=== PATIENT | male | born 1975 | race Caucasian/White ===

== ENCOUNTER 2016-10-24 11:50 | Inpatient (IN) | payer OTHER ==
[2016-10-24 11:58] VITALS: BMI 33.3
[2016-10-24] MEDS ORDERED: NS 1000 ML 1,000 ML IV ONE (13:02)
--- NOTE | 2016-10-24 13:05 | DR.GENAD ---
HPI - PCP Primary Care Physician: MD - HPI Comment HPI Comment: PATIENT HAVE NAUSEA, VOMITING DIARRHEA. GIVEN MEDS FOR FOR STOMACK VIRUS. TAKEN MEDS WITHOUT IMPROVEMENT. FAIL OUT PATIENT TREATMENT. FEQUENT BOWEL MOVEMENT NOTED IN ED. PATIENT HAVE FEVER THAT HAVE IMPROVE. VOMITING IMPROVING ALSO. - Complaint/Symptoms Chief Complaint Doctors Comments: ABDOMINAL PAIN, NAUSEA, VOMITING DIARRHEA FOR 3 TO 4 DAYS. Chief Complaint:: STOMACH VIRUS,VOMITING,DIVITICULITIS - Nurses notes reviewed Nurses Notes Review: Yes - Source History Provided: Patient - Mode of Arrival Mode of Arrival: Ambulatory - Timing Onset of Chief Complaint: 10/21/16 Came on: Suddenly - Duration Duration: Constant Duration: Days - Severity Severity: Moderate PMH - PMH Past Medical History: Yes Past Medical History: Anxiety, Depression, Diabetes, Hypertension Past Medical History Comment: TBI,PTSD Past Surgical History: Yes Surgical History: Cholecystectomy, Ortho Surgery, Tonsillectomy - Family History History of Family Medical Conditions: Yes Family Medical History: Diabetes Mellitus, Hypertension - Social History Does patient currently use any type of tobacco product: Yes Have you used tobacco products in the last 12 months: Yes Type of Tobacco Use: Cigarettes How many years tobacco product used: 18 Does any household member use tobacco: Yes Alcohol Use: Rarely Do you use any recreational Drugs:: No Lives With: Family Lives Where: Home - infectious screening In the last 2 months have you had wt loss of >10#?: NO Have you had fever, night sweats or hemotysis?: No Have you traveled outside the country in the last 6 months?: No Isolation: Standard ROS - Review of Systems Constitutional: Weakness, Fatigue, Loss of Appetite Eyes: No Symptoms Reported. negative: Eye Pain, Discharge ENTM: No Symptoms Reported. negative: Ear Pain, Nose Discharge, Nose Congestion , Throat Pain Respiratoy: No Symptoms Reported. negative: Productive Cough, Non-Productive Cough, Short of Breath, Wheezing, Hemoptysis Cardiovascular: No Symptoms Reported Gastrointestinal/Abdominal: Abdominal Pain, Diarrhea, Nausea, Vomiting Genitourinary: No Symptoms Reported. negative: Dysuria, Frequency, Hematuria Neurological: Weakness, Dizziness Musculoskeletal: Muscle Pain Integumentary: Dryness Hematologic/Lymphatic: Easy Bruising Endocrine: Increased Thirst. negative: Flushing All Other Systems: Reviewed and Negative PE - Vital Signs Vitals: Temperature 98.1 F Pulse Rate [Right Radial] 78 Pulse Rate 87 Respiratory Rate 16 Blood Pressure [Right Arm] 122/66 Blood Pressure 123/76 O2 Sat by Pulse Oximetry 98 - General Limitations: No Limitations General Appearance: Alert - Head Head Exam: Normal Inspection - Eyes Eye exam: Normal Appearance - ENT ENT Exam: Normal External Ear Exam External Ear Exam: Normal External Inspection TM/Canal Exam: Bilateral Normal Nose Exam: Normal Nose Exam Mouth Exam: Normal Inspection Throat Exam: Normal Inspection - Chest Chest Inspection: Symmetric Chest Wall Rise - Respiratory Respiratory Exam: Normal Lung Sounds Bilat Respiratory Exam: Bilateral Clear to Auscultation - Cardiovascular Cardiovascular Exam: Regular Rate, Normal Rhythm, Normal Heart Sounds - Abdominal Exam Abdominal Exam: Normal Bowel Sounds, Soft, Tenderness Abdominal Tenderness: LUQ, LLQ, Moderate - Extremities Extremities Exam: Normal Inspection - Back Back Exam: Normal Inspection - Neurologic Neurological Exam: Alert, Oriented X3 - Psychiatric Psychiatric Exam: Normal Affect, Normal Mood - Skin Skin Exam: Normal Color MDM - Differential Diagnosis Differential Diagnosis: LEFT SIDED ABDOMINAL PAQIN, GASTROENTERITIS, DIVERTICULITIS, DEHYDRATION Course - Treatment Treatment: SEE ORDERS, NS AND ANTIBIOTICS AND PAIN MED IN ED. - Reevaluation 1st: Improved, Unchanged - Consultation Consultation Comments: DISCUSS PATIENT WITH DR. REAGAN. HE WILL ADMIT PATIENT. - Education/Counseling Education/Counseling: Patient, Education Educated On: Treatment, Diagnosis, Needs for Follow Up ROR - Labs Reviewed Laboratory Results Reviewed?: Yes Result Diagrams: 10/24/16 13:11 10/24/16 13:11 Laboratory: 10/24/16 13:46 Stool - Final WBC 5.7 X10^3/uL (3.6-10.0) 10/24/16 13:11 RBC 5.05 X10^6/uL (4.7-6.0) 10/24/16 13:11 Hgb 14.2 g/dL (13.5-18.0) 10/24/16 13:11 Hct 42.1 % (42.0-54.0) 10/24/16 13:11 MCV 83.5 fL (80.0-100.0) 10/24/16 13:11 MCH 28.2 pg (27.0-34.0) 10/24/16 13:11 MCHC 33.8 g/dL (33.0-35.0) 10/24/16 13:11 RDW 13.7 % (11.6-16.5) 10/24/16 13:11 Plt Count 216 X10^3/uL (150.0-450.0) 10/24/16 13:11 MPV 8.3 fL (7.4-11.0) 10/24/16 13:11 Neut % 71.1 % (42.0-75.0) 10/24/16 13:11 Lymph % 13.6 % (21.0-51.0) L 10/24/16 13:11 [place] % 10.8 % (0.0-13.0) 10/24/16 13:11 Eos % 4.1 % (0.9-2.9) H 10/24/16 13:11 Baso % 0.4 % (0.2-1.0) 10/24/16 13:11 Neut # 4.0 x10^3/uL (2.2-4.8) 10/24/16 13:11 Lymph # 0.8 X10^3/uL (1.3-2.9) L 10/24/16 13:11 [place] # 0.6 x10^3/uL (0.3-0.8) 10/24/16 13:11 Eos # 0.2 x10^3/uL (0.0-0.2) 10/24/16 13:11 Baso # 0.0 X10^3/uL (0.0-0.1) 10/24/16 13:11 Absolute Nucleated RBC 0.0 /100WBC 10/24/16 13:11 Sodium 143 mmol/L (136-145) 10/24/16 13:11 Corrected Sodium 144 mmol/L (136-145) 10/24/16 13:11 Potassium 4.1 mmol/L (3.5-5.1) 10/24/16 13:11 Chloride 107 mmol/L (98-107) 10/24/16 13:11 Carbon Dioxide 26.1 mmol/L (21-32) 10/24/16 13:11 BUN 12 mg/dL (7-18) 10/24/16 13:11 Creatinine 1.25 mg/dL (0.70-1.30) 10/24/16 13:11 Est GFR (MDRD) Af Amer > 60 (>60) 10/24/16 13:11 Est GFR (MDRD) Non-Af > 60 (>60) 10/24/16 13:11 Glucose 147 mg/dL (65-99) H 10/24/16 13:11 Calcium 8.4 mg/dL (8.5-10.1) L 10/24/16 13:11 Corrected Calcium TNP 10/24/16 13:11 Total Bilirubin 0.30 mg/dL (0.2-1.0) 10/24/16 13:11 AST 11 Units/L (15-37) L 10/24/16 13:11 ALT 24 Units/L (12-78) 10/24/16 13:11 Alkaline Phosphatase 64 Units/L (46-116) 10/24/16 13:11 Total Protein 7.0 g/dL (6.4-8.2) 10/24/16 13:11 Albumin 3.7 g/dL (3.4-5.0) 10/24/16 13:11 Globulin 3.3 g/dL (2.5-4.5) 10/24/16 13:11 Albumin/Globulin Ratio 1.1 Ratio (1.1-2.1) 10/24/16 13:11 Amylase 64 Units/L (25-115) 10/24/16 13:11 Lipase 173 Units/L (73-393) 10/24/16 13:11 Specimen Type Clean catch urine 10/24/16 13:46 Urine Color Yellow (YELLOW) 10/24/16 13:46 Urine Appearance Slightly hazy (CLEAR) 10/24/16 13:46 Urine pH 5.0 (5.0 - 8.0) 10/24/16 13:46 Ur Specific [place] 1.025 (1.000-1.030) 10/24/16 13:46 Urine Protein 2+ (NEGATIVE) 10/24/16 13:46 Urine Glucose (UA) Negative (NEGATIVE) 10/24/16 13:46 Urine Ketones 1+ (NEGATIVE) 10/24/16 13:46 Urine Occult Blood Negative (NEGATIVE) 10/24/16 13:46 Urine Nitrite Negative (NEGATIVE) 10/24/16 13:46 Urine Bilirubin Negative (NEGATIVE) 10/24/16 13:46 Urine Urobilinogen Normal (NORMAL) 10/24/16 13:46 Ur Leukocyte Esterase Negative (NEGATIVE) 10/24/16 13:46 Urine RBC Negative /HPF (NEGATIVE) 10/24/16 13:46 Urine WBC Rare /HPF (NEGATIVE) 10/24/16 13:46 Ur Squamous Epith Cells Few /HPF (NEGATIVE) 10/24/16 13:46 Urine Bacteria Negative /HPF (NEGATIVE) 10/24/16 13:46 Urine Mucus Numerous /HPF (NEGATIVE) 10/24/16 13:46 Ur Culture Indicated? No/not indicated 10/24/16 13:46 Stool Description 200 cc liquid yellow 10/24/16 13:46 Stool for White Cells Few (None) 10/24/16 13:46 Stl C. diff Tox B Gene Negative (NEGATIVE) 10/24/16 13:46 Stl C. diff [id number] Negative (NEGATIVE) 10/24/16 13:46 Cryptosporid parvum Ag Negative (NEGATIVE) 10/24/16 13:46 E. histolytica Antigen Negative (NEGATIVE) 10/24/16 13:46 Giardia lamblia Ag Negative (NEGATIVE) 10/24/16 13:46 - XRAY XRAY Interpreted by: Radiologist XRAY Findings: REPORT DISCUSS WITH PATIENT. - Diagnosis Discharge Problem: Dehydration, Infective diarrhea, Colitis, Retractile mesenteritis Abdominal pain Qualifiers: Abdominal location: left upper quadrant Qualified Code(s): R10.12 - Left upper quadrant pain - Discharge Plan Disposition: 09 ADMITTED INPATIENT Condition: Stable - Follow ups/Referrals - Instructions
[2016-10-24] MEDS ORDERED: NS 1000 ML 1,000 ML ONE (13:25)
[2016-10-24 13:27] LABS: BASOPHILS % (AUTO) 0.4 % (0.2-1.0); EOSINOPHILS # (AUTO) 0.2 x10^3/uL (0.0-0.2); EOSINOPHILS % (AUTO) 4.1 % (0.9-2.9); HEMATOCRIT 42.1 % (42.0-54.0); HEMOGLOBIN 14.2 g/dL (13.5-18.0); LYMPHOCYTES # (AUTO) 0.8 X10^3/uL (1.3-2.9); LYMPHOCYTES % (AUTO) 13.6 % (21.0-51.0); MEAN CORPUSCULAR HEMOGLOBIN 28.2 pg (27.0-34.0); MEAN CORPUSCULAR HGB CONC 33.8 g/dL (33.0-35.0); MEAN CORPUSCULAR VOLUME 83.5 fL (80.0-100.0); MEAN PLATELET VOLUME 8.3 fL (7.4-11.0); MONOCYTES # (AUTO) 0.6 x10^3/uL (0.3-0.8); MONOCYTES % (AUTO) 10.8 % (0.0-13.0); NEUTROPHILS % (AUTO) 71.1 % (42.0-75.0); PLATELET COUNT 216 X10^3/uL (150.0-450.0); RED BLOOD COUNT 5.05 X10^6/uL (4.7-6.0); RED CELL DISTRIBUTION WIDTH 13.7 % (11.6-16.5); WHITE BLOOD COUNT 5.7 X10^3/uL (3.6-10.0)
[2016-10-24 13:33] LABS: ALANINE AMINOTRANSFERASE 24 Units/L (12-78); ALBUMIN 3.7 g/dL (3.4-5.0); ALKALINE PHOSPHATASE 64 Units/L (46-116); AMYLASE 64 Units/L (25-115); ASPARTATE AMINO TRANSFERASE 11 Units/L (15-37); BLOOD UREA NITROGEN 12 mg/dL (7-18); CALCIUM 8.4 mg/dL (8.5-10.1); CARBON DIOXIDE 26.1 mmol/L (21-32); CHLORIDE 107 mmol/L (98-107); COR NA(FOR HYPERGLY) 144 mmol/L (136-145); CREATININE 1.25 mg/dL (0.70-1.30); GLUCOSE 147 mg/dL (65-99); LIPASE 173 Units/L (73-393); SODIUM 143 mmol/L (136-145); eGFR BLACK RACES > 60 (>60); eGFR NON BLACK RACES > 60 (>60)
--- NOTE | 2016-10-24 13:46 | CT ---
HISTORY: Abdominal pain Study: CT abdomen pelvis without contrast Comparison: None Technique: axial non contrast images with coronal and sagittal reformats. Dose reduction procedures were used with MA/kv adjusted for body size. This examination is limited due to the lack of intraven ous and oral contrast. Findings: The lung bases are clear. The liver, spleen, adrenal glands, and pancreas are within normal limits to the limitations of an unenhanced examination. The patient is status post cholecystectomy. The kid neys are unobstructed . There is a 1 millimeter nonobstructing right lower pole renal calculus . No left renal calculi are identified. No ureteral calculi are identified. The appendix is normal. There are no findings suggestive of diverticulitis or colitis. No enlarged intraperitoneal or retroperito moy lymphadenopathy is identified. There is diffusely increased attenuation in the mesenteric fat i n the mid abdomen. This can be seen in acute and in chronic mesenteritis. Examination of the pelvis demonstrated no evidence for pelvic masses, pelvic fluid, or pelvic lymphadenopathy. There is bilate ral spondylolysis at L5 without evidence for spondylolisthesis. IMPRESSION: Limited examination for the reason noted above Diffusely increased attenuation in the mesenteric fat in the mid abdomen which is a finding that can be seen in both acute and chronic mesenteritis No evidence for obstructing renal or ureteral calculi Normal appendix Bilateral spondylolysis at L5 without evidence for spondylolisthesis Reported By:
[2016-10-24 13:55] LABS: BILIRUBIN,URINE NEGATIVE (NEGATIVE); BLOOD/HEMOGLOBIN,URINE NEGATIVE (NEGATIVE); GLUCOSE, URINE NEGATIVE (NEGATIVE); KETONES,URINE 1+ (NEGATIVE); LEUKOCYTE ESTERASE ,URINE NEGATIVE (NEGATIVE); NITRITES,URINE NEGATIVE (NEGATIVE); PROTEIN,URINE 2+ (NEGATIVE); UROBILINOGEN,URINE NORMAL (NORMAL)
[2016-10-24 14:12] LABS: APPEARANCE,URINE SLIGHTLY HAZY (CLEAR); COLOR,URINE YELLOW (YELLOW)
[2016-10-24 14:15] LABS: BACTERIA,URINE NEGATIVE /HPF (NEGATIVE); RBC,URINE NEGATIVE /HPF (NEGATIVE); SQUAMOUS EPITHELIAL CELL,UR FEW /HPF (NEGATIVE)
[2016-10-24 14:16] LABS: MUCUS,URINE NUMEROUS /HPF (NEGATIVE)
[2016-10-24] MEDS ORDERED: LOMOTIL PO ONE (14:24)
[2016-10-24] MEDS ORDERED: LOMOTIL ONE (14:26)
[2016-10-24] MEDS ORDERED: PEPCID 20 MG IV PREMIX* 20 MG/50 ML BAG IV ONE ×2 (14:32→14:34)
[2016-10-24] MEDS ORDERED: TORADOL 30 MG VIAL IM ONE (14:32)
[2016-10-24] MEDS ORDERED: TORADOL 30 MG VIAL ONE (14:35)
[2016-10-24] MEDS: NS 1000 ML 1,000 ML IV SCH (14:45)
[2016-10-24 15:02] LABS: STOOL FOR WBC Few
[2016-10-24 15:17] LABS: CRYPTOSPORIDIUM PARVUM ANTIGEN NEGATIVE (NEGATIVE); GIARDIA LAMBLIA ANTIGEN NEGATIVE (NEGATIVE)
[2016-10-24] MEDS ORDERED: CIPRO IV 400 MG PREMIX* 400 MG/200 ML IV.SOLN. IV ONE ×2 (15:57→16:02)
[2016-10-24] MEDS ORDERED: PHENERGAN INJ 25 MG ONE (17:20)
[2016-10-24] MEDS ORDERED: MORPHINE SULFATE INJ 4 MG ONE (17:20)
[2016-10-24] MEDS ORDERED: PEPCID 20 MG IV PREMIX* 20 MG/50 ML BAG IV PRN (17:20)
[2016-10-24] MEDS ORDERED: ZOFRAN INJ 4 MG VIAL IVP PRN (17:20)
[2016-10-24] MEDS ORDERED: TYLENOL 325 MG TAB PO PRN (17:20)
[2016-10-24] MEDS: MORPHINE SULFATE INJ 2 MG IVP PRN ×2 (17:30→22:09)
[2016-10-24] MEDS: PHENERGAN INJ 25 MG IVP PRN (17:30)
[2016-10-24] MEDS ORDERED: NS 1000 ML 1,000 ML IV SCH (18:00)
[2016-10-24] MEDS ORDERED: CIPRO IV 400 MG PREMIX* 400 MG/200 ML IV.SOLN. IV SCH (18:00)
[2016-10-24] MEDS: CIPRO IV 400 MG PREMIX* 400 MG/200 ML IV.SOLN. IV SCH (22:08)
[2016-10-25] MEDS: NS 1000 ML 1,000 ML IV SCH ×5 (01:06→20:33)
[2016-10-25] MEDS: MORPHINE SULFATE INJ 2 MG IVP PRN ×4 (02:15→20:33)
[2016-10-25 05:17] LABS: BASOPHILS % (AUTO) 0.1 % (0.2-1.0); EOSINOPHILS # (AUTO) 0.2 x10^3/uL (0.0-0.2); HEMATOCRIT 39.1 % (42.0-54.0); HEMOGLOBIN 13.1 g/dL (13.5-18.0); LYMPHOCYTES # (AUTO) 0.9 X10^3/uL (1.3-2.9); LYMPHOCYTES % (AUTO) 22.9 % (21.0-51.0); MEAN CORPUSCULAR HEMOGLOBIN 28.5 pg (27.0-34.0); MEAN CORPUSCULAR HGB CONC 33.5 g/dL (33.0-35.0); MEAN PLATELET VOLUME 8.5 fL (7.4-11.0); MONOCYTES # (AUTO) 0.6 x10^3/uL (0.3-0.8); NEUTROPHILS # (AUTO) 2.2 x10^3/uL (2.2-4.8); PLATELET COUNT 187 X10^3/uL (150.0-450.0); RED CELL DISTRIBUTION WIDTH 13.9 % (11.6-16.5)
[2016-10-25 05:34] LABS: ALANINE AMINOTRANSFERASE 20 Units/L (12-78); ALKALINE PHOSPHATASE 50 Units/L (46-116); AMYLASE 45 Units/L (25-115); ASPARTATE AMINO TRANSFERASE 9 Units/L (15-37); BLOOD UREA NITROGEN 15 mg/dL (7-18); CARBON DIOXIDE 24.7 mmol/L (21-32); CHLORIDE 110 mmol/L (98-107); COR CA(FOR HYPOALB) 8.8 mg/dL (8.5-10.1); CREATININE 1.32 mg/dL (0.70-1.30); GLUCOSE 110 mg/dL (65-99); LIPASE 94 Units/L (73-393); SODIUM 144 mmol/L (136-145); TOTAL PROTEIN 6.1 g/dL (6.4-8.2); eGFR BLACK RACES > 60 (>60); eGFR NON BLACK RACES > 60 (>60)
[2016-10-25] MEDS: CIPRO IV 400 MG PREMIX* 400 MG/200 ML IV.SOLN. IV SCH ×2 (10:21→20:33)
[2016-10-25] MEDS ORDERED: [UNRECOGNIZED DRUG - OTHER] PO PRN (13:11)
[2016-10-25] MEDS ORDERED: VENTOLIN or PROAIR HFA INH PRN (13:11)
[2016-10-25] MEDS ORDERED: FIORICET TAB PO PRN (13:11)
[2016-10-25] MEDS ORDERED: ALLEGRA ONE (14:42)
[2016-10-25] MEDS: ZOCOR TAB 20 MG PO SCH (14:44)
[2016-10-25] MEDS: LAMICTAL TAB 100 MG PO SCH ×2 (14:44→20:33)
[2016-10-25] MEDS: ALLEGRA PO SCH (14:44)
[2016-10-25] MEDS ORDERED: MYLICON TAB 80 MG CHEW PO PRN (18:08)
[2016-10-25] MEDS: DEPAKOTE D.R. TAB PO SCH (20:33)
[2016-10-25] MEDS ORDERED: BENTYL I.M. INJ 10 MG IM PRN (21:08)
[2016-10-25] MEDS: PHENERGAN INJ 25 MG IVP PRN (21:11)
[2016-10-26] MEDS: NS 1000 ML 1,000 ML IV SCH ×5 (03:52→23:20)
[2016-10-26 05:24] LABS: BASOPHILS % (AUTO) 0.1 % (0.2-1.0); EOSINOPHILS # (AUTO) 0.2 x10^3/uL (0.0-0.2); EOSINOPHILS % (AUTO) 5.4 % (0.9-2.9); HEMATOCRIT 41.4 % (42.0-54.0); LYMPHOCYTES # (AUTO) 0.8 X10^3/uL (1.3-2.9); LYMPHOCYTES % (AUTO) 21.6 % (21.0-51.0); MEAN CORPUSCULAR HEMOGLOBIN 28.1 pg (27.0-34.0); MEAN CORPUSCULAR HGB CONC 33.8 g/dL (33.0-35.0); MEAN CORPUSCULAR VOLUME 83.3 fL (80.0-100.0); MEAN PLATELET VOLUME 8.9 fL (7.4-11.0); MONOCYTES # (AUTO) 0.8 x10^3/uL (0.3-0.8); MONOCYTES % (AUTO) 22.1 % (0.0-13.0); NEUTROPHILS # (AUTO) 1.8 x10^3/uL (2.2-4.8); NEUTROPHILS % (AUTO) 50.8 % (42.0-75.0); PLATELET COUNT 200 X10^3/uL (150.0-450.0); RED BLOOD COUNT 4.97 X10^6/uL (4.7-6.0); RED CELL DISTRIBUTION WIDTH 13.6 % (11.6-16.5); WHITE BLOOD COUNT 3.5 X10^3/uL (3.6-10.0)
[2016-10-26 05:34] LABS: ALANINE AMINOTRANSFERASE 37 Units/L (12-78); ALBUMIN 3.1 g/dL (3.4-5.0); ALKALINE PHOSPHATASE 87 Units/L (46-116); ASPARTATE AMINO TRANSFERASE 26 Units/L (15-37); BLOOD UREA NITROGEN 10 mg/dL (7-18); CALCIUM 8.3 mg/dL (8.5-10.1); CARBON DIOXIDE 26.9 mmol/L (21-32); CHLORIDE 107 mmol/L (98-107); CREATININE 1.16 mg/dL (0.70-1.30); GLUCOSE 98 mg/dL (65-99); SODIUM 145 mmol/L (136-145); TOTAL PROTEIN 6.3 g/dL (6.4-8.2); eGFR BLACK RACES > 60 (>60); eGFR NON BLACK RACES > 60 (>60)
[2016-10-26 06:00] LABS: BAND NEUTROPHILS % 11 % (0-10)
[2016-10-26 06:01] LABS: PLATELET MORPHOLOGY COMMENT NORMAL (NORMAL)
[2016-10-26] MEDS ORDERED: ALLEGRA ONE (08:55)
[2016-10-26] MEDS ORDERED: LEVSIN/MAALOX/LIDOC VISC PO SCH (10:00)
[2016-10-26] MEDS: CIPRO IV 400 MG PREMIX* 400 MG/200 ML IV.SOLN. IV SCH ×2 (10:07→22:14)
[2016-10-26] MEDS: LAMICTAL TAB 100 MG PO SCH ×2 (10:08→22:13)
[2016-10-26] MEDS: ZOCOR TAB 20 MG PO SCH (10:08)
[2016-10-26] MEDS: ALLEGRA PO SCH (10:08)
[2016-10-26] MEDS: BENTYL CAP 10 MG PO PRN ×2 (10:13→22:13)
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
--- NOTE | 2016-10-26 16:00 | PCM.PROG ---
Progress Note - Progress Note for Day of Date: 10/25/16 - Subjective Subjective: PATIENT CONTINUES TO REPORTS ABDOMINAL PAIN WITH DIARRHEA AND VOMITING. PATIENT IS REPORTING PAIN TO [facility] THIS MORNING AND HE IS NOTED WITH TENDERNESS TO THAT AREA ON PALPATION. PATIENT CONTINUES ON IV CIPRO ALONG WITH IV FLUIDS, IV PEPCID, MORPHINE, ZOFRAN, AND PHENERGAN. CBC WNL EXCEPT: H/H 13.1 /39.1. CMP WNL EXCEPT: CHL 110, CREAT 1.32, GLUCOSE 110, CALCIUM 8.0, TOT PROTEIN 6.1, ALBUMIN 3.0. PRELIMINARY STOOL CULTURE IS NEGATIVE. WE WILL CONTINUE CURRENT TREATMENT AND CONTINUE TO MONITOR. WE WILL FOLLOW UP IN AM WITH LABS. - Past Medical Family Social History Past Med/Fam/Surg Hx: No changes since H&P Allergies: Allergies Metronidazole [From Flagyl] Allergy (Severe, Verified 10/24/16 18:43) GENERALIZED SWELLING Meperidine [From Demerol HCl] Allergy (Intermediate, Verified 10/24/16 18:43) PHLEBITIS Amantadine Allergy (Verified 10/24/16 18:43) Glimepiride Allergy (Verified 10/24/16 18:44) - Review of Systems ROS: No change since H&P - Vital Signs and I&O's Vital Signs: Temperature 98.4 F Pulse Rate [Right Radial] 68 Respiratory Rate 18 Blood Pressure [Right Arm] 111/52 O2 Sat by Pulse Oximetry 97 Intake and Output: Intake & Output 10/24/16 10/25/16 10/26/16 10/27/16 11:59 11:59 11:59 11:59 Intake Total 900 2610 Output Total 250 Balance 900 2360 - Physical Exam Oriented: Normal, Time, Person, Place Eyes: Normal. negative: Blurred Vision, Diplopia, Discharge, Pain, Redness, Photophobia Ear: Normal. negative: Swelling, Ecchymosis, Hemotypanum, Abrasion, Laceration Nose: Normal. negative: Injected, Discharge, Blood Throat: Dry. negative: Tonsillar Hypertrophy, Exudate Cardiovascular: Normal. negative: Murmur, Edema : Normal. negative: Dysuria, Hematuria, Frequency, Discharge, Testicular Pain Auscultation: Bowel Sounds: Increased. negative: Bruit Palpation: Normal. negative: Spleen Enlarged, Liver Enlarged, Mass Pulsatile Tenderness: Diffuse, Moderate. negative: Rebound, Guarding, Rigidity Skin: Decreased [place]. negative: Diaphoresis, Wound, Bruising, Ecchymosis Musculoskeletal: Normal Psychiatric: Normal Mood Description: Calm, Appropriate Affect: Normal Speech Pattern: Clear, Appropriate - Laboratory and Diagnostics Result Diagrams: 10/26/16 04:10 10/26/16 04:10 Labs: Laboratory WBC 3.5 X10^3/uL (3.6-10.0) L 10/26/16 04:10 RBC 4.97 X10^6/uL (4.7-6.0) 10/26/16 04:10 Hgb 14.0 g/dL (13.5-18.0) 10/26/16 04:10 Hct 41.4 % (42.0-54.0) L 10/26/16 04:10 MCV 83.3 fL (80.0-100.0) 10/26/16 04:10 MCH 28.1 pg (27.0-34.0) 10/26/16 04:10 MCHC 33.8 g/dL (33.0-35.0) 10/26/16 04:10 RDW 13.6 % (11.6-16.5) 10/26/16 04:10 Plt Count 200 X10^3/uL (150.0-450.0) 10/26/16 04:10 Plt Count Comment Adequate (ADEQUATE) 10/26/16 04:10 MPV 8.9 fL (7.4-11.0) 10/26/16 04:10 Neut % 50.8 % (42.0-75.0) 10/26/16 04:10 Lymph % 21.6 % (21.0-51.0) 10/26/16 04:10 [place] % 22.1 % (0.0-13.0) H 10/26/16 04:10 Eos % 5.4 % (0.9-2.9) H 10/26/16 04:10 Baso % 0.1 % (0.2-1.0) L 10/26/16 04:10 Neut # 1.8 x10^3/uL (2.2-4.8) L 10/26/16 04:10 Lymph # 0.8 X10^3/uL (1.3-2.9) L 10/26/16 04:10 [place] # 0.8 x10^3/uL (0.3-0.8) 10/26/16 04:10 Eos # 0.2 x10^3/uL (0.0-0.2) 10/26/16 04:10 Baso # 0.0 X10^3/uL (0.0-0.1) 10/26/16 04:10 Absolute Nucleated RBC 0.1 /100WBC 10/26/16 04:10 Total Counted 100 10/26/16 04:10 Neutrophils % (Manual) 37 % (39-76) L 10/26/16 04:10 Band Neutrophils % 11 % (0-10) H 10/26/16 04:10 Lymphocytes % (Manual) 28 % (13-43) 10/26/16 04:10 Monocytes % (Manual) 23 % (4-9) H 10/26/16 04:10 Eosinophils % (Manual) 1 % (0-6) 10/26/16 04:10 Plt Morphology Comment Normal (NORMAL) 10/26/16 04:10 RBC Morphology Normal (NORMAL) 10/26/16 04:10 Sodium 145 mmol/L (136-145) 10/26/16 04:10 Corrected Sodium TNP 10/26/16 04:10 Potassium 3.9 mmol/L (3.5-5.1) 10/26/16 04:10 Chloride 107 mmol/L (98-107) 10/26/16 04:10 Carbon Dioxide 26.9 mmol/L (21-32) 10/26/16 04:10 BUN 10 mg/dL (7-18) 10/26/16 04:10 Creatinine 1.16 mg/dL (0.70-1.30) 10/26/16 04:10 Est GFR (MDRD) Af Amer > 60 (>60) 10/26/16 04:10 Est GFR (MDRD) Non-Af > 60 (>60) 10/26/16 04:10 Glucose 98 mg/dL (65-99) 10/26/16 04:10 Calcium 8.3 mg/dL (8.5-10.1) L 10/26/16 04:10 Corrected Calcium 9.0 mg/dL (8.5-10.1) 10/26/16 04:10 Total Bilirubin 0.30 mg/dL (0.2-1.0) 10/26/16 04:10 AST 26 Units/L (15-37) 10/26/16 04:10 ALT 37 Units/L (12-78) 10/26/16 04:10 Alkaline Phosphatase 87 Units/L (46-116) 10/26/16 04:10 Total Protein 6.3 g/dL (6.4-8.2) L 10/26/16 04:10 Albumin 3.1 g/dL (3.4-5.0) L 10/26/16 04:10 Globulin 3.2 g/dL (2.5-4.5) 10/26/16 04:10 Albumin/Globulin Ratio 1.0 Ratio (1.1-2.1) L 10/26/16 04:10 Amylase 45 Units/L (25-115) 10/25/16 04:25 Lipase 94 Units/L (73-393) 10/25/16 04:25 Specimen Type Clean catch urine 10/24/16 13:46 Urine Color Yellow (YELLOW) 10/24/16 13:46 Urine Appearance Slightly hazy (CLEAR) 10/24/16 13:46 Urine pH 5.0 (5.0 - 8.0) 10/24/16 13:46 Ur Specific [place] 1.025 (1.000-1.030) 10/24/16 13:46 Urine Protein 2+ (NEGATIVE) 10/24/16 13:46 Urine Glucose (UA) Negative (NEGATIVE) 10/24/16 13:46 Urine Ketones 1+ (NEGATIVE) 10/24/16 13:46 Urine Occult Blood Negative (NEGATIVE) 10/24/16 13:46 Urine Nitrite Negative (NEGATIVE) 10/24/16 13:46 Urine Bilirubin Negative (NEGATIVE) 10/24/16 13:46 Urine Urobilinogen Normal (NORMAL) 10/24/16 13:46 Ur Leukocyte Esterase Negative (NEGATIVE) 10/24/16 13:46 Urine RBC Negative /HPF (NEGATIVE) 10/24/16 13:46 Urine WBC Rare /HPF (NEGATIVE) 10/24/16 13:46 Ur Squamous Epith Cells Few /HPF (NEGATIVE) 10/24/16 13:46 Urine Bacteria Negative /HPF (NEGATIVE) 10/24/16 13:46 Urine Mucus Numerous /HPF (NEGATIVE) 10/24/16 13:46 Ur Culture Indicated? No/not indicated 10/24/16 13:46 Stool Description 200 cc liquid yellow 10/24/16 13:46 Stool for White Cells Few (None) 10/24/16 13:46 Stl C. diff Tox B Gene Negative (NEGATIVE) 10/24/16 13:46 Stl C. diff [id number] Negative (NEGATIVE) 10/24/16 13:46 Cryptosporid parvum Ag Negative (NEGATIVE) 10/24/16 13:46 E. histolytica Antigen Negative (NEGATIVE) 10/24/16 13:46 Giardia lamblia Ag Negative (NEGATIVE) 10/24/16 13:46 - Plan (1) Retractile mesenteritis Status: Acute Plan: CONTINUE IV FLUIDS, IV CIPRO, PEPCID, IV MORPHINE, IV ZOFRAN, MONITOR. (2) Abdominal pain Status: Acute Qualifiers: Abdominal location: left upper quadrant Qualified Code(s): R10.12 - Left upper quadrant pain Plan: ABOVE. (3) Colitis Status: Acute Plan: ABOVE. (4) Infective diarrhea Status: Acute Plan: ABOVE. (5) Dehydration Status: Acute Plan: CONTINUE IV FLUIDS, MONITOR LABS. (6) Diabetes type 2, controlled Status: Chronic Qualifiers: Diabetes mellitus complication status: without complication Diabetes mellitus complication detail: D Diabetic retinopathy severity: D Proliferative retinopathy type: P Diabetes mellitus macular edema: D Diabetes mellitus meterman insulin use: without assisted use Laterality: L Chronic kidney disease stage: C Qualified Code(s): E11.9 - Type 2 diabetes mellitus without complications (7) Anxiety Status: Chronic (8) Depression Status: Chronic Qualifiers: Depression Type: major depressive disorder Major depression recurrence: recurrent Active/Remission status: currently active Major depression episode severity: moderate Psychotic features: P Trimester: T Qualified Code(s): F33.1 - Major depressive disorder, recurrent, moderate (9) PTSD (post-traumatic stress disorder) Status: Chronic
--- NOTE | 2016-10-26 16:42 | PCM.PROG ---
Progress Note - Progress Note for Day of Date: 10/26/16 - Subjective Subjective: PATIENT IS REPORTING DIARRHEA AND VOMITING THIS MORNING. HE ALSO REPORTS WEAKNESS AND FATIGUE. PATIENT CONTINUES TO REPORT PAIN TO [facility], HOWEVER , HE REPORTS PAIN IS IMPROVING SLOWLY. PATIENT CONTINUES ON A FULL LIQUID DIET AND IS TOLERATING POORLY AT THIS TIME. PATIENT CONTINUES ON IV CIPRO ALONG WITH IV FLUIDS, IV PEPCID, MORPHINE, ZOFRAN, AND PHENERGAN. CBC WNL EXCEPT: WBC 3.5, HCT 41.4. CMP WNL EXCEPT: CALCIUM 8.3, TOT PROTEIN 6.3, ALBUMIN 3.1. FINAL STOOL CULTURE IS NEGATIVE. WE WILL CONTINUE CURRENT TREATMENT, REAPEAT CT OF ABD/PELVIS IN AM, AND CONTINUE TO MONITOR. WE WILL FOLLOW UP IN AM WITH LABS. - Past Medical Family Social History Past Med/Fam/Surg Hx: No changes since H&P Allergies: Allergies Metronidazole [From Flagyl] Allergy (Severe, Verified 10/24/16 18:43) GENERALIZED SWELLING Meperidine [From Demerol HCl] Allergy (Intermediate, Verified 10/24/16 18:43) PHLEBITIS Amantadine Allergy (Verified 10/24/16 18:43) Glimepiride Allergy (Verified 10/24/16 18:44) - Review of Systems ROS: No change since H&P - Vital Signs and I&O's Vital Signs: Temperature 98.4 F Pulse Rate [Right Radial] 68 Respiratory Rate 18 Blood Pressure [Right Arm] 111/52 O2 Sat by Pulse Oximetry 97 Intake and Output: Intake & Output 10/24/16 10/25/16 10/26/16 10/27/16 11:59 11:59 11:59 11:59 Intake Total 900 2610 1000 Output Total 250 400 Balance 900 2360 600 - Physical Exam Oriented: Normal, Time, Person, Place Eyes: Normal. negative: Blurred Vision, Diplopia, Discharge, Pain, Redness, Photophobia Ear: Normal. negative: Swelling, Ecchymosis, Hemotypanum, Abrasion, Laceration Nose: Normal. negative: Injected, Discharge, Blood Throat: Dry. negative: Tonsillar Hypertrophy, Exudate Respiratory: Normal Cardiovascular: Normal. negative: Murmur, Edema : Normal. negative: Dysuria, Hematuria, Frequency, Discharge, Testicular Pain Auscultation: Bowel Sounds: Increased. negative: Bruit Palpation: Normal. negative: Spleen Enlarged, Liver Enlarged, Mass Pulsatile Tenderness: Diffuse, Mild. negative: Rebound, Guarding, Rigidity Skin: Normal. negative: Diaphoresis, Wound, Bruising, Ecchymosis Musculoskeletal: Normal Psychiatric: Normal Mood Description: Calm, Appropriate Affect: Normal Speech Pattern: Clear, Appropriate - Laboratory and Diagnostics Result Diagrams: 10/26/16 04:10 10/26/16 04:10 Labs: Laboratory WBC 3.5 X10^3/uL (3.6-10.0) L 10/26/16 04:10 RBC 4.97 X10^6/uL (4.7-6.0) 10/26/16 04:10 Hgb 14.0 g/dL (13.5-18.0) 10/26/16 04:10 Hct 41.4 % (42.0-54.0) L 10/26/16 04:10 MCV 83.3 fL (80.0-100.0) 10/26/16 04:10 MCH 28.1 pg (27.0-34.0) 10/26/16 04:10 MCHC 33.8 g/dL (33.0-35.0) 10/26/16 04:10 RDW 13.6 % (11.6-16.5) 10/26/16 04:10 Plt Count 200 X10^3/uL (150.0-450.0) 10/26/16 04:10 Plt Count Comment Adequate (ADEQUATE) 10/26/16 04:10 MPV 8.9 fL (7.4-11.0) 10/26/16 04:10 Neut % 50.8 % (42.0-75.0) 10/26/16 04:10 Lymph % 21.6 % (21.0-51.0) 10/26/16 04:10 [place] % 22.1 % (0.0-13.0) H 10/26/16 04:10 Eos % 5.4 % (0.9-2.9) H 10/26/16 04:10 Baso % 0.1 % (0.2-1.0) L 10/26/16 04:10 Neut # 1.8 x10^3/uL (2.2-4.8) L 10/26/16 04:10 Lymph # 0.8 X10^3/uL (1.3-2.9) L 10/26/16 04:10 [place] # 0.8 x10^3/uL (0.3-0.8) 10/26/16 04:10 Eos # 0.2 x10^3/uL (0.0-0.2) 10/26/16 04:10 Baso # 0.0 X10^3/uL (0.0-0.1) 10/26/16 04:10 Absolute Nucleated RBC 0.1 /100WBC 10/26/16 04:10 Total Counted 100 10/26/16 04:10 Neutrophils % (Manual) 37 % (39-76) L 10/26/16 04:10 Band Neutrophils % 11 % (0-10) H 10/26/16 04:10 Lymphocytes % (Manual) 28 % (13-43) 10/26/16 04:10 Monocytes % (Manual) 23 % (4-9) H 10/26/16 04:10 Eosinophils % (Manual) 1 % (0-6) 10/26/16 04:10 Plt Morphology Comment Normal (NORMAL) 10/26/16 04:10 RBC Morphology Normal (NORMAL) 10/26/16 04:10 Sodium 145 mmol/L (136-145) 10/26/16 04:10 Corrected Sodium TNP 10/26/16 04:10 Potassium 3.9 mmol/L (3.5-5.1) 10/26/16 04:10 Chloride 107 mmol/L (98-107) 10/26/16 04:10 Carbon Dioxide 26.9 mmol/L (21-32) 10/26/16 04:10 BUN 10 mg/dL (7-18) 10/26/16 04:10 Creatinine 1.16 mg/dL (0.70-1.30) 10/26/16 04:10 Est GFR (MDRD) Af Amer > 60 (>60) 10/26/16 04:10 Est GFR (MDRD) Non-Af > 60 (>60) 10/26/16 04:10 Glucose 98 mg/dL (65-99) 10/26/16 04:10 Calcium 8.3 mg/dL (8.5-10.1) L 10/26/16 04:10 Corrected Calcium 9.0 mg/dL (8.5-10.1) 10/26/16 04:10 Total Bilirubin 0.30 mg/dL (0.2-1.0) 10/26/16 04:10 AST 26 Units/L (15-37) 10/26/16 04:10 ALT 37 Units/L (12-78) 10/26/16 04:10 Alkaline Phosphatase 87 Units/L (46-116) 10/26/16 04:10 Total Protein 6.3 g/dL (6.4-8.2) L 10/26/16 04:10 Albumin 3.1 g/dL (3.4-5.0) L 10/26/16 04:10 Globulin 3.2 g/dL (2.5-4.5) 10/26/16 04:10 Albumin/Globulin Ratio 1.0 Ratio (1.1-2.1) L 10/26/16 04:10 Amylase 45 Units/L (25-115) 10/25/16 04:25 Lipase 94 Units/L (73-393) 10/25/16 04:25 Specimen Type Clean catch urine 10/24/16 13:46 Urine Color Yellow (YELLOW) 10/24/16 13:46 Urine Appearance Slightly hazy (CLEAR) 10/24/16 13:46 Urine pH 5.0 (5.0 - 8.0) 10/24/16 13:46 Ur Specific [place] 1.025 (1.000-1.030) 10/24/16 13:46 Urine Protein 2+ (NEGATIVE) 10/24/16 13:46 Urine Glucose (UA) Negative (NEGATIVE) 10/24/16 13:46 Urine Ketones 1+ (NEGATIVE) 10/24/16 13:46 Urine Occult Blood Negative (NEGATIVE) 10/24/16 13:46 Urine Nitrite Negative (NEGATIVE) 10/24/16 13:46 Urine Bilirubin Negative (NEGATIVE) 10/24/16 13:46 Urine Urobilinogen Normal (NORMAL) 10/24/16 13:46 Ur Leukocyte Esterase Negative (NEGATIVE) 10/24/16 13:46 Urine RBC Negative /HPF (NEGATIVE) 10/24/16 13:46 Urine WBC Rare /HPF (NEGATIVE) 10/24/16 13:46 Ur Squamous Epith Cells Few /HPF (NEGATIVE) 10/24/16 13:46 Urine Bacteria Negative /HPF (NEGATIVE) 10/24/16 13:46 Urine Mucus Numerous /HPF (NEGATIVE) 10/24/16 13:46 Ur Culture Indicated? No/not indicated 10/24/16 13:46 Stool Description 200 cc liquid yellow 10/24/16 13:46 Stool for White Cells Few (None) 10/24/16 13:46 Stl C. diff Tox B Gene Negative (NEGATIVE) 10/24/16 13:46 Stl C. diff [id number] Negative (NEGATIVE) 10/24/16 13:46 Cryptosporid parvum Ag Negative (NEGATIVE) 10/24/16 13:46 E. histolytica Antigen Negative (NEGATIVE) 10/24/16 13:46 Giardia lamblia Ag Negative (NEGATIVE) 10/24/16 13:46 - Plan (1) Retractile mesenteritis Status: Acute Plan: CONTINUE IV FLUIDS, IV CIPRO, PEPCID, IV MORPHINE, IV ZOFRAN, MONITOR. (2) Abdominal pain Status: Acute Qualifiers: Abdominal location: left upper quadrant Qualified Code(s): R10.12 - Left upper quadrant pain Plan: ABOVE. (3) Colitis Status: Acute Plan: ABOVE. (4) Infective diarrhea Status: Acute Plan: ABOVE. (5) Dehydration Status: Acute Plan: CONTINUE IV FLUIDS, MONITOR LABS. (6) Diabetes type 2, controlled Status: Chronic Qualifiers: Diabetes mellitus complication status: without complication Diabetes mellitus complication detail: D Diabetic retinopathy severity: D Proliferative retinopathy type: P Diabetes mellitus macular edema: D Diabetes mellitus terminal gauger insulin use: without prison use Laterality: L Chronic kidney disease stage: C Qualified Code(s): E11.9 - Type 2 diabetes mellitus without complications (7) Anxiety Status: Chronic (8) Depression Status: Chronic Qualifiers: Depression Type: major depressive disorder Major depression recurrence: recurrent Active/Remission status: currently active Major depression episode severity: moderate Psychotic features: P Trimester: T Qualified Code(s): F33.1 - Major depressive disorder, recurrent, moderate (9) PTSD (post-traumatic stress disorder) Status: Chronic
[2016-10-26] MEDS: DEPAKOTE D.R. TAB PO SCH (22:12)
[2016-10-26] MEDS: MORPHINE SULFATE INJ 2 MG IVP PRN (23:20)
[2016-10-27] MEDS ORDERED: NS 100 ML IV 100 ML IV ONE (05:45)
[2016-10-27 05:50] LABS: ALANINE AMINOTRANSFERASE 31 Units/L (12-78); ALKALINE PHOSPHATASE 70 Units/L (46-116); ASPARTATE AMINO TRANSFERASE 14 Units/L (15-37); BLOOD UREA NITROGEN 8 mg/dL (7-18); CALCIUM 8.4 mg/dL (8.5-10.1); CARBON DIOXIDE 26.4 mmol/L (21-32); CHLORIDE 110 mmol/L (98-107); COR CA(FOR HYPOALB) 9.2 mg/dL (8.5-10.1); COR NA(FOR HYPERGLY) 146 mmol/L (136-145); CREATININE 1.14 mg/dL (0.70-1.30); GLUCOSE 114 mg/dL (65-99); SODIUM 146 mmol/L (136-145); TOTAL PROTEIN 6.1 g/dL (6.4-8.2); eGFR BLACK RACES > 60 (>60); eGFR NON BLACK RACES > 60 (>60)
[2016-10-27 06:10] LABS: BASOPHILS % (AUTO) 0.1 % (0.2-1.0); EOSINOPHILS # (AUTO) 0.1 x10^3/uL (0.0-0.2); HEMATOCRIT 37.6 % (42.0-54.0); LYMPHOCYTES # (AUTO) 1.4 X10^3/uL (1.3-2.9); LYMPHOCYTES % (AUTO) 36.7 % (21.0-51.0); MEAN CORPUSCULAR HEMOGLOBIN 28.8 pg (27.0-34.0); MEAN CORPUSCULAR HGB CONC 34.5 g/dL (33.0-35.0); MEAN CORPUSCULAR VOLUME 83.3 fL (80.0-100.0); MEAN PLATELET VOLUME 8.5 fL (7.4-11.0); MONOCYTES # (AUTO) 0.6 x10^3/uL (0.3-0.8); MONOCYTES % (AUTO) 16.8 % (0.0-13.0); NEUTROPHILS # (AUTO) 1.6 x10^3/uL (2.2-4.8); NEUTROPHILS % (AUTO) 42.4 % (42.0-75.0); PLATELET COUNT 203 X10^3/uL (150.0-450.0); RED BLOOD COUNT 4.52 X10^6/uL (4.7-6.0); RED CELL DISTRIBUTION WIDTH 13.8 % (11.6-16.5); WHITE BLOOD COUNT 3.7 X10^3/uL (3.6-10.0)
--- NOTE | 2016-10-27 07:03 | CT ---
HISTORY: Abdominal pain Study: CT abdomen pelvis with contrast Comparison: CT abdomen pelvis without contrast October 24, 2016 Technique: Axial post-contrast images with coronal and sagittal reformats. Dose reduction procedures were use with MA/kv adjusted for body size. Findings: The lung bases are clear. The liver, spleen, adrenal glands, and pancreas are within normal limits. The patient is status post cholecystectomy. The kidneys are unobstructed without masses. The patient 's known 1 millimeter nonobstructing right lower pole renal calculus is likely obscured by contrast and not well demonstrated on this examination. The appendix is normal. There are no findings suggest shweta of diverticulitis or colitis. No enlarged intraperitoneal or retroperitoneal lymphadenopathy is identified. Scattered nonenlarged mesenteric nodes are present. Once again noted is diffusely increa sed attenuation in the fat at the root of the mesenteric. This can be seen in acute and chronic mese nteritis and is unchanged from the prior examination peer E examination of the pelvis demonstrated n o evidence for pelvic masses, pelvic fluid, or pelvic lymphadenopathy. There is a question of some m ild thickening of the wall of the bladder although the bladder is not well distended. Clinical corre lation as to the presence or absence of finding of cystitis should be helpful. No lytic or blastic s keletal lesions are identified. There is bilateral spondylolysis at L5 without spondylolisthesis. IMPRESSION: Diffuse increased attenuation in the mesenteric fat which is a finding that can be observed in both acute and chronic mesenteritis. This finding is unchanged from the prior examination Normal appendix Bilateral spondylolysis at L5 without evidence for spondylolisthesis Reported By:
[2016-10-27] MEDS ORDERED: ALLEGRA ONE (08:55)
[2016-10-27] MEDS: ZOCOR TAB 20 MG PO SCH (09:44)
[2016-10-27] MEDS: LAMICTAL TAB 100 MG PO SCH (09:44)
[2016-10-27] MEDS: CIPRO IV 400 MG PREMIX* 400 MG/200 ML IV.SOLN. IV SCH (09:44)
[2016-10-27] MEDS: ALLEGRA PO SCH (09:44)
[2016-10-27 11:33] VITALS: BP 127/83
== END 2016-10-27 11:40 | disposition home or self-care (01) | DRG 394 ==
LOC: ER 12:14 → MED/SURG 16:51 → OBSVTOIN 10-25 08:00
PROVIDERS: ADMIT Internal Medicine; ATTEND Internal Medicine
DX: K65.4 Sclerosing mesenteritis (principal); A09 Infectious gastroenteritis and colitis, unspecified; R11.2 Nausea with vomiting, unspecified; R19.7 Diarrhea, unspecified; R10.12 Left upper quadrant pain; E86.0 Dehydration; M13.89 Other specified arthritis, multiple sites; E11.65 Type 2 diabetes mellitus with hyperglycemia; E78.2 Mixed hyperlipidemia; K21.9 Gastro-esophageal reflux disease without esophagitis; I10 Essential (primary) hypertension; F41.8 Other specified anxiety disorders; F33.1 Major depressive disorder, recurrent, moderate; F43.12 Post-traumatic stress disorder, chronic
CPT/HCPCS: 36415; 74176; 74177; 80053; 81001; 82150; 83690; 85025; 87045; 87205; 87328; 87329; 87336; 87427; 87493; 87899; 96365; 96372; 96374; 96375; 99284; A4222; S0028; G0378; J0500; J0744; J1885; J2270; J2550